=== PATIENT | male | born 1960 | race Caucasian/White ===

== ENCOUNTER → 2022-08-26 | Outpatient (CLI) | payer SELFPAY, OTHER ==
--- NOTE | 2022-08-26 08:25 | CT_ITS ---
STUDY: CT ABDOMEN AND PELVIS WITH CONTRAST REASON FOR EXAM: Male, 62 years old. Multiple hernias and right thigh growth. -- Scan 6 in below groin, right thigh growth RADIATION DOSAGE (If Supplied By Facility): CTDIvol = ( 17.05 ) mGy, DLP = ( 1663.85 ) mGycm TECHNIQUE: Transaxial images were obtained from the dome of the diaphragm to the symphysis pubis with oral contrast. Oral and amp; IV Readi-CAT and amp; 100mL Isovue-300 was administered. Sagittal and coronal images were reconstructed. Individualized dose optimization techniques were used for this CT. COMPARISON: None. FINDINGS: The visualized lung bases are unremarkable. Coronary artery calcification. Normal liver. Normal gallbladder and extrahepatic biliary system. Normal spleen. Normal pancreas. Normal bilateral adrenal glands. Normal right kidney. Normal left kidney. There is a small hiatal hernia. Normal small intestine. There are multiple colonic diverticula consistent with diverticulosis. The appendix is visualized and appears normal. There is scattered atherosclerotic calcification of the abdominal aorta, without a demonstrated aneurysm. Normal inferior vena cava. Normal retroperitoneum. Normal urinary bladder. There is a small umbilical hernia containing fat. Small bilateral inguinal hernias containing fat slightly worse on the right side. There is a 6.6 x 4.6 x 9.4 cm fat-containing mass in the medial anterior aspect of the right thigh suggestive of a lipoma. Normal osseous structures. CT/Abdomen/Pelvis WITH Contrast IMPRESSION: Small bilateral inguinal hernias containing fat slightly worse on the right side. 6.6 cm x 4.6 x 9.4 cm lipoma in the anterior medial aspect of the right thigh. Electronically Signed: Sky Clancy MD at 10:52 EST ,
[2022-08-26 08:55] LABS: CREATININE FINGERSTICK 1.2 mg/dL (0.70-1.30); EGFR FINGERSTICK > 60.0000 mL/min (>60)
== END | disposition home or self-care (01) ==
PROVIDERS: Visit Provider Surgery
DX: K44.9 Diaphragmatic hernia without obstruction or gangrene (principal); D17.23 Benign lipomatous neoplasm of skin and subcutaneous tissue of right leg; K57.30 Diverticulosis of large intestine without perforation or abscess without bleeding; I25.10 Atherosclerotic heart disease of native coronary artery without angina pectoris; K40.20 Bilateral inguinal hernia, without obstruction or gangrene, not specified as recurrent; K46.9 Unspecified abdominal hernia without obstruction or gangrene
CPT/HCPCS: 74177; Q9967

== ENCOUNTER → 2022-09-14 | Outpatient (CLI) | payer SELFPAY, OTHER | END | disposition home or self-care (01) | PROVIDERS: PCP Family Medicine; Referring Provider Nurse Practitioner Acute Care; Visit Provider Nurse Practitioner Acute Care | DX: G47.30 Sleep apnea, unspecified (principal) | CPT/HCPCS: 95806 ==

== ENCOUNTER → 2022-09-15 | Outpatient (CLI) | payer SELFPAY, OTHER ==
--- NOTE | 2022-09-15 12:07 | RAD_ITS ---
INDICATION: CONCERN FOR RA EXAMINATION/TECHNIQUE: X-RAY - RIGHT XR Knee Complete 4 VIEWS COMPARISON: None. FINDINGS: SOFT TISSUES: No soft tissue swelling or gas. No radiopaque foreign body. BONES/JOINTS: No acute fracture or subluxation.. Normal alignment. Preservation of the joint space.. No sclerotic or destructive changes observed. RAD/Knee 4 or More Views IMPRESSION: Negative. Electronically Signed: Levi Thomas DO at 22:44 EST ,
--- NOTE | 2022-09-15 12:18 | RAD_ITS ---
INDICATION: LEFT KNEE SWELLING/ PAIN/CONCERN FOR RA EXAMINATION/TECHNIQUE: X-RAY - LEFT XR Knee Complete 4 VIEWS COMPARISON: None. FINDINGS: SOFT TISSUES: No soft tissue swelling or gas. No radiopaque foreign body. BONES/JOINTS: No acute fracture or subluxation.. Normal alignment. There is a suprapatellar effusion.. No sclerotic or destructive changes observed. RAD/Knee 4 or More Views IMPRESSION: No acute bony injury. There is a mild effusion. Electronically Signed: Levi Thomas DO at 22:48 EST ,
== END | disposition home or self-care (01) ==
LOC: RAD 11:57
PROVIDERS: PCP Family Medicine; Visit Provider Family Medicine
DX: M25.562 Pain in left knee (principal); M25.469 Effusion, unspecified knee
CPT/HCPCS: 73564

== ENCOUNTER 2022-11-16 10:54 | Day surgery (SDC) | payer SELFPAY, OTHER ==
--- NOTE | 2022-11-09 08:37 | EKG12_ITS ---
Test Reason : PRE OP Blood Pressure : / mmHG Vent. Rate : 063 BPM Atrial Rate : 063 BPM P-R Int : 152 ms QRS Dur : 092 ms QT Int : 422 ms P-R-T Axes : 053 073 071 degrees QTc Int : 431 ms Normal sinus rhythm Normal ECG Confirmed by KEIRA CELESTIN, VIRGINIA ([id number]), news copy editor MIRELA CAMACHO ([id number]) on 11/10/2022 9:57:59 AM Referred By: NEVILLE Confirmed By:VIRGINIA CROCKETT MD
[2022-11-16] VITALS (8 sets, daily range): BP systolic 131–174; BP diastolic 80–110; PULSE 66–95; RESP 14–18; TEMP 36.1–37.3; O2SAT 90–99; BMI 29.9
--- NOTE | 2022-11-16 | HERN_PTH ---
PATIENT: RADHA SCHILLING LOC: [facility] [place][id number] AGE/SX: 62/M ROOM: RE11/16/[address]: Dr. Omi Ortega MD : 1960 BED: DIS: 11/16/2022 SPEC #: [id number] RECD: 11/16/22 16:58 STATUS: SABINA BIN #: [id number] DONNA: 11/16/22 00:[address]: Omi Ortega DEPT: SURGICAL PATHOLOGY RECD BY: Russell Plata ENTERED: 11/17/22 09:20 SP TYPE: Hernia OTHR DR: Dr. Obi Lei, DO Tissues: HERNIA Procedures: Surgery Specimen Level III HEADER OPERATION: Robotic assisted umbilical hernia and left inguinal hernia PRE-OP DIAGNOSIS: Bilateral inguinal hernia, umbilical hernia TISSUE SUBMITTED: Left inguinal cord lipoma MICROSCOPIC DIAGNOSIS Left inguinal cord lipoma, excision: Mature adipose tissue consistent with cord lipoma. AM:alec 11/18/2022 MICROSCOPIC DESCRIPTION Slides are reviewed. GROSS DESCRIPTION Received in fixative is one container labeled with the patient's name and designated left inguinal cord lipoma. The specimen consists of multiple irregular fragments of yellow fatty tissue that in aggregate measure 3.0 x 2.0 x 0.2 cm. The specimen is totally submitted in one cassette. / AM:alec 11/17/2022 TC:1 CPT: 95446
[2022-11-16] MEDS: Lactated Ringers 1,000 ML 15 ML IV (11:39)
--- NOTE | 2022-11-16 12:36 | HP.PCM_ITS ---
History and Physical Date of Admission: 11/16/22 Date of Service:? 11/09/22 MR#: [id number] Acct: [id number] Name:RADHA PHILLIPS Rep #: [id number] : 1960 ? ? Provider: Dr. Omi Ortega MD Age/Sex:? 62/M ? ? Location: [facility] Status: Signed Intake Vital Signs ? 11/09/2308:13 Height 5 ft 11 in Weight: 210 lb BMI 29.2 BP 147/90 H Blood Pressure Location Rt brachial Position Sitting Intake Visit Reasons:?Updated H&P Chief Complaint: updated H&P Scan Coordinator Required: No Is patient in pain?: No Allergies No Known Allergies Allergy (Verified 11/09/22 09:12) Medications multivitamin 1 tab PO DAILY 08/18/22 [History Confirmed 11/09/22] naproxen sodium 220 mg capsule (Aleve) 220 mg PO BID PRN Pain 08/18/22 [History Confirmed 11/09/22] prednisone 10 mg tablet 10 mg PO DAILY 11/08/22 [History Confirmed 11/09/22] PFSH Medical History? Back pain CPAP (continuous positive airway pressure) dependence History of irregular heartbeat History of steroid therapy History of stress test Hx of sebaceous cyst Non-smoker Polymyalgia rheumatica Sleep apnea Wears glasses Surgical History? History of cardiac catheterization Family History? Mother Breast cancerSister Thyroid disorder Social History? Smoking Status:? Never smoker HPI HPI HPI: Patient is a 62-year-old male known to me for history of a left inguinal hernia, but has been under work-up for bilateral inguinal hernias, umbilical hernia, and right lower extremity lipoma.? He returns today to update H&P in anticipation of surgery.? He states that he has recently returned from a 3-week trip to [facility].? There he had an enjoyable time with lots of walking, but as a consequence developed an exacerbation of his polymyalgia rheumatica and was prescribed a course of 10 mg prednisone by his physician through the [facility].? He notes that he is due to taper this to 5 mg on 11/15/2022, but states that if that it would be a problem from his surgery he will taper sooner.? Regarding his hernias, he states that they are not bothering him right now, but he is eager to have them addressed so that they do not get to the point of bothering him further.? From a pulmonary update, he states that he is now been using a CPAP machine.? He frankly admits that he is not convinced it is making a difference.? He admits, however, to that he is frequently taking the mask off about longterm through the night rather subconsciously.? He notes that his follow -up with pulmonology on 11/29/2022 is merely that as a follow-up to see how he is tolerating his CPAP machine. Below is recapitulated from patient's consultation visit for ease of review: Patient is a 62-year-old male who presents for left groin discomfort.? He is known to me from recent community event on 07/30/2022 highlighting hernias of all types.? I had the opportunity to perform a brief exam which was concerning for both a left inguinal hernia as well as an umbilical hernia.? Regarding the inguinal complaint, this finding was first noticed by patient 6 months ago.? He denies any significant pain from the area but complains of a sensation.? He also states that he has not felt anything this past 1 week.? He denies any bulging in the area.? Patient is not able to recall how this occurred.? Other symptoms include: No change to bowel movements or sudden onset of nausea or vomiting.? He confirms the umbilical hernia was a completely incidental finding during my exam. Patient has no personal history of smoking.? Has no personal history of recurrent cutaneous infections including staph. Patient also comments on a soft tissue mass of his right thigh which she has been previously told is fatty tissue and could be ignored.? However, he admits no imaging has ever been done of the area and it does continue to grow in size.? He confirms it is asymptomatic for him. Pertinent surgical history includes: Noncontributory Patient reports a prior heart issue which his states occurred some 10 to 12 years ago.? He was routinely donating blood, but was stopped from doing so when he was informed that his heart was skipping a beat.? He reports that he had a very thorough cardiac work-up ensued including a treadmill stress test (which reportedly showed his heart leveled out).? He also reports that there was a very high suspicion that he would require a cardiac stent, but on undergoing a heart catheterization he was told everything was clear and he would not require a stent.? Yet out of the above work-up, he was informed he likely had sleep apnea and underwent a study in [place].? He comments that the results of this study did not leave him with any clear direction as the provider interpreting the study stated that he should probably be on a mask at night.? Mr. Linares did not like the thought of a mask and subsequently lost weight so decided that he did not require this any further.? He has not had any further evaluation, however, his reports that he snores every time he falls asleep and she hears him gasping for air when he takes naps in his chair.? He denies any present chest pain or exertional shortness of breath.? He initially denies any daytime sleepiness, but when called to account by his admits that he takes naps almost daily. Patient has a history of polymyalgia rheumatica diagnosed with the [facility] several years ago.? He reports going on prednisone for 3 years with symptom relief.? He is states now though he is off the steroids (for the past couple years).? He and treats his symptoms now with a Aleve as needed. ROS General General: No weight change, appetite, fatigue, colon cancer, breast cancer or weakness HEENT HEENT: No difficulty swallowing, eye injury, eye surgery, swollen glands or hoarseness Endo Endocrine: No thyroid disease, diabetes mellitus, thyroid cancer, Hair loss, heat intolerance or cold intolerance Skin Skin: No rash or changing moles Breast Breast: No left breast lump, right breast lump, nipple discharge, breast pain, abnormal mammogram, abnormal US or breast enlargement Musc Musculoskeletal: Yes rheumatoid arthritis; No back problems, arthritis, gout or joint pain Cardio Cardiovascular: No murmur, pacemaker, heart disease, atrial fibrillation, high blood pressure, heart attack, heart stent, palpitations, shortness of breat with exertion or chest pain Psych Psychiatric: No depression, anxiety or hearing voices Resp Respiratory: No shortness of breath, Yes sleep apnea, No cough, No COPD, No asthma, No emphysema and No wheezing Gastro Gastrointestinal: No abdominal pain, No nausea or vomiting, No diarrhea, No constipation, No blood in stool, No acid reflux, No hemorrhoids, No ulcers, No gallbladder problem and No black,tarry stools Alexey Hematologic: No blood thinners, No blood disorders, No bleeding, No anemia and No blood clots Neuro Neurologic: No system reviewed and no additional complaints, except as documented, No as per HPI, No abnormal gait, No abnormal hearing, No abnormal movements, No abnormal speech, No behavioral changes, No burning sensations, No confusion, No convulsions, No disequilibrium, No dizziness, No localized weakness, No frequent falls, No headache(s), No lack of coordination, No loss of vision, No memory loss, No numbness, No other visual disturbances, No radicular pain, No restless legs, No sensory deficit, No syncope, No tingling, No tremor(s), No weakness and No other Exam Const General: cooperative, comfortable and no acute distress Resp Effort & Inspection: normal respiratory effort GI Other: reducible 1 cm umbilical hernia.? No scars.? Nondistended, soft and nontender to palpation x4 quadrants Other: Bilateral groin hernias are palpable?appear to be indirect defects.? There is tenderness with exam, but hernias are reducible. Extrem Other: Palpable, superficial, nontender subcutaneous mass in the right anterior thigh compartment Assessment and Plan Assessment and Plan (1) Bilateral inguinal hernia: ?Status:?Chronic ?Comment: Is a 62-year-old male with evidence of bilateral, indirect inguinal hernias who is slated for robot-assisted repair with mesh 11/16/2022.? He states that they have been minimally symptomatic, but he is eager to be underway with repair so that they do not become more of an issue for him.? He confirms that he is prepared to take the necessary time away from activity to allow them to recover appropriately.? We discussed the issues around his diagnosis of sleep apnea and polymyalgia rheumatica.? To the former we discussed needing to stay on his CPAP longer and the absolute necessity of using it the night of his general anesthesia.? Regarding his diagnosis of polymyalgia rheumatica, I have asked him to consider tapering to the 5 mg dose of prednisone sooner than for 11/15/2022.? And we will also have to plan for stress dose steroids the timing of the procedure. ?Plan: ? Robot-assisted bilateral inguinal hernia repair with mesh planned for 11/16/2022 ? Patient to complete MRSA screening later today ? Patient to taper steroids to 5 mg prednisone later this week ? Reach out to pulmonary medicine to assess for any further recommendations from their perspective regarding patient's impending general anesthetic (2) Umbilical hernia: ?Status:?Acute ?Comment: This is an incidental finding in this 62-year-old patient.? As per previous exam, this represents a reducible 1.5 cm defect.? To not compromise her port placement for the bilateral inguinal hernia repair, I have proposed primary closure via separate incision.? Patient states that he would like to proceed as described. ?Plan: ? Primary closure of umbilical hernia concurrent with bilateral inguinal hernia repair as above (3) Mass of right thigh: ?Status:?Acute ?Comment: Long standing finding that has not caused patient any symptoms.? However, he confirms that it is grown considerably in size.? Patient wishes to have this removed, but I have advocated for separate procedure from his hernias as I believe this may impact his recovery.? Patient expresses understanding of this rationale and agrees to defer this procedure to another date.? I did review with him, his CT imaging which shows a clear plane between the lipoma and the underlying musculature/femoral artery. ?Plan: ? Defer lipoma excision from right thigh to later date I have examined the patient and the H&P has been reviewed. There are no clinical changes since date of exam. Patient's blood pressure is a little bit elevated, but he admits that he is just simply anxious until he is underway with surgery. He reports that he otherwise feels well. Procedure expectations and postoperative activity restrictions were reviewed. Patient wishes to know when he will be able to return to work. I have advised him that this should be sooner than his lifting restrictions are due to , but recommended we wait until his follow-up visit. Neither he nor his spouse have any further questions. Therefore we will proceed to the operating room for robot-assisted inguinal hernia repair with mesh as well as open primary umbilical hernia repair.
[2022-11-16] MEDS: Cefazolin 2 GM in 0.9% Normal Saline 100 ML IV (13:00)
--- NOTE | 2022-11-16 15:54 | OP.PCM_ITS ---
Report of Operation Date of Procedure: 11/16/22 Pre-Operative Diagnosis: 1. Left inguinal hernia possible right inguinal hernia 2. Nonincarcerated umbilical hernia (1 cm fascial defect) Post-Operative Diagnosis: 1. Left indirect inguinal hernia and no evidence of right inguinal hernia 2. Nonincarcerated umbilical hernia (1 cm fascial defect) Surgery/Procedure Performed:: 1. Robot-assisted left inguinal hernia repair with mesh 2. Robot-assisted primary umbilical hernia repair Surgeon: Omi Ortega christmas tree farmer: Angelika Fuentes christmas tree farmer: Ida Das Type of Anesthesia: General/Supplemental Anesthesiologist: Fernando Davis Specimen's removed: Left cord lipoma Estimated Blood Loss (mL): 20 Description of Procedure: After appropriate identification in the preoperative holding area the patient was brought to the operating room where he was positioned supine on the operating table. Preoperative antibiotics were completed and the patient was administered a general anesthetic. Patient's abdomen was then prepped and draped in usual sterile fashion. Formal timeout followed to confirm patient and procedure. Procedure was begun with an optical entry facilitated by Veress insufflation at Baker's point. Once pneumoperitoneum reached a set point pres sure of 12 mmHg a right paramedian incision was made and a 8 mm robotic trocar was placed with a careful Optiview technique. Follow-up laparoscopic investigation revealed no inadvertent injury to the viscera below. A second port was placed a hand's breath right of this index port under laparoscopic visualization. Then the Veress needle was withdrawn and a third and final robotic port was placed through this site. Patient was positioned in slight Trendelenburg and I performed a local block of the ilioinguinal nerves using 10 mL local anesthetic under laparoscopic visualization. The robot was docked in standard fashion. In this positioning I could visualize a indirect abdominal wall defect on the left but no visible defect on the right. Robotically, a peritoneal flap was created on the left extending from the medial umbilical ligament to the level of the ASIS (external) and was bluntly dissected to expose the medial parietal compartment and lateral visceral compartments. Medially I could visualize the pubic tubercle and Solis's ligament while laterally I extended the dissection down to the level of the ASIS and the psoas muscle deeply. The indirect hernia sac was identified and from the cord structures deeply with selective use of monopolar energy. A medium size cord lipoma was identified and removed with monopolar energy. Beyond this, I did not visualize either a direct or femoral defect. The peritoneal flap was inspected to ensure that cord was appropriately parietalized and there was no pulling of the cord structures or the viscera deeply over the psoas using the pull test. Then attention was turned to the patient's right side where I again confirmed no evidence of a inguinal hernia. I had observed during his peritoneal exploration, that I had adequate visualization of the patient's umbilical hernia defect and made the decision to repair this robotically (rather than open as patient awake and scented) as well to save him an incision. Using monopolar energy I created a flap of the peritoneum and took down the preperitoneal fat as well as the fat plug within the hernia using gentle traction. Several bleeding vessels were controlled with use of bipolar energy. Ultimately I was able to clearly visualize the umbilical fascial defect and this measured 1 cm in width. Given the small size, and the fact that the patient had been consented for primary repair, I elected to call for a STRATAFIX suture for primary closure. But first a repeat constructed the patient's left side. A Bard 3D max, size large, mid weight mesh was placed into the abdomen along with suture. It was positioned within the preperitoneal pocket so that there was good medial and inferior overlap. It was then tacked to Solis's ligament at the pubic tubercle and laterally in a partial-thickness bite of the abdominal wall using a 3-0 Vicryl suture. The edges of the mesh were tucked in front of the peritoneal flap and the flap was elevated to stimulate closure to be sure that there is no clamshelling. Finding none, I tacked the mesh laterally to the abdominal wall with a second interrupted 3-0 Vicryl stitch. The peritoneal flap was then closed was then closed with a running 3-0 V-Loc suture. I then transitioned to the umbilical site and closed the fascia directly with our STRATAFIX suture and asked my procurement assistant to place some traction on the overlying umbilical skin so that this could be incorporated in the closure and reproduce the concavity that would have been naturally present. After completing this closure in a bidirectional fashion, I used my 3-0 Vicryl suture to tack the peritoneum back over the fascia and thereby protect the viscera from any barbs of the STRATAFIX suture. With the peritoneal defects closed, sutures were systematically removed from the peritoneum and the pneumoperitoneum was evacuated before removing the trocars. The port sites were closed at the skin with running 4-0 Monocryl in a subcuticular fashion. Steri-Strips and OpSite's were used as dressings. Patient's testicles were confirmed within the scrotum. Patient was then awoken from anesthetic and transferred to PACU for ongoing recovery. Grafts/Implants Used: Left 3D max mid anatomic mesh lot number: [id number], reference [id number] Complications None Admit VTE Documentation VTE Mechan Device Prophylaxis: SCD's
--- NOTE | 2022-11-16 15:59 | DCINST_ITS ---
Discharge Instructions Diet Discharge Diet: No restrictions Activity Discharge Activity: May Not Drive (While taking narcotic pain medication) and May Shower May shower in (days): 2 Ice area for (Minutes): 20 Lifting Restrictions: No lifting greater than 15 pounds for the next 4 weeks Dressing / Incision Call your doctor if your incision/area has: Continuous Slow Oozing, Increased Pain/ Swelling, Increased Redness, Foul Smelling Discharge and Swelling at the incision site Call your doctor if you observe: Fever of 101 or Higher Change Dressing in: 2 days (Please leave Steri-Strips intact until they fall off spontaneously or are taken off at your follow-up visit) Cleanse incision/area with: Soap & Water and Keep Dressing Clean & Dry Follow Up Care Please Follow Up With: Omi Ortega MD When: 1 week postop Test Results: Test results from this visit will be discussed in further detail at your follow- up appointment, if applicable. Discharge Plan Admission Primary Reason for Your Visit: Inguinal and umbilical hernia repairs Attending Provider: Omi Ortega Primary Care Provider: Obi Lei Discharge Orders/Prescriptions Prescriptions: New oxycodone 5 mg tablet 5 mg PO Q6H PRN (Reason: pain) 5 Days Qty: 14 0RF No Action naproxen sodium [Aleve] 220 mg capsule 220 mg PO BID PRN (Reason: Pain) multivitamin Tablet 1 tab PO DAILY prednisone 10 mg Tablet 5 mg PO DAILY Label Comments: ON TAPERED DOSE PACK Referrals / Follow Up: Obi Lei DO [Primary Care Provider] - Disposition Disposition (needs filled in before D/C Order can be placed): Home, Self Care
[2022-11-16] MEDS: Bupivacaine 0.25% 30 ML Vial (16:02)
[2022-11-16] MEDS: Sugammadex Sodium 200 MG/2 ML VIAL IV (16:09)
[2022-11-16] MEDS: oxyCODONE 5 MG Tablet PO (17:26)
== END 2022-11-16 17:46 | disposition home or self-care (01) ==
LOC: SDC 10:55 → AC 10:56
PROVIDERS: PCP Family Medicine; Referring Provider Surgery; Visit Provider Surgery
PROC: 0YQ64ZZ Repair Left Inguinal Region, Percutaneous Endoscopic Approach (ICD-10-PCS; CPT 49650; principal; 2022-11-16 12:15)
DX: K40.20 Bilateral inguinal hernia, without obstruction or gangrene, not specified as recurrent (principal); M35.3 Polymyalgia rheumatica; K42.9 Umbilical hernia without obstruction or gangrene; G47.30 Sleep apnea, unspecified; D17.6 Benign lipomatous neoplasm of spermatic cord; Z99.89 Dependence on other enabling machines and devices
CPT/HCPCS: 49650; 49591; 00840; 55520; 87081; 88302; 88304; 93005; J7120; J2405

== ENCOUNTER 2023-01-04 05:58 | Day surgery (SDC) | payer SELFPAY, OTHER ==
[2023-01-04] VITALS (8 sets, daily range): BP systolic 105–150; BP diastolic 69–93; PULSE 49–71; RESP 16; TEMP 36.3–36.7; O2SAT 93–98; BMI 30.7
[2023-01-04] MEDS: Lactated Ringers 1,000 ML 15 ML IV (06:37)
--- NOTE | 2023-01-04 07:26 | HP.PCM_ITS ---
History and Physical Date of Admission: 01/04/23 Date of Service:? 12/15/22 MR#: [id number] Acct: [id number] Name:RADHA PHILLIPS Rep #: [id number] : 1960 ? ? Provider: Dr. Omi Ortega MD Age/Sex:? 62/M ? ? Location: [facility] Status: Signed Intake Intake Visit Reasons:?f/u hernia repair 11/16 Chief Complaint: f/u hernia surgery 11/16 Is patient in pain?: No Allergies No Known Allergies Allergy (Verified 12/15/22 09:01) Medications multivitamin 1 tab PO DAILY 08/18/22 [History Confirmed 12/15/22] prednisone 10 mg tablet 5 mg PO DAILY 11/08/22 [History Confirmed 12/15/22] Subjective Details: Patient is a 62-year-old male who makes his second follow-up visit after a left robot-assisted inguinal hernia repair with mesh as well as a robot-assisted umbilical hernia repair.? His last visit with us was 11/24/2022.? He reports today again with his .? He states that overall he has done well in his ongoing recovery.? He and his report that overall he is remained within his activity restrictions, but does confess that just over 3 weeks out from his surgery he attempted to push a gun safe and did position and felt some pulling in his abdomen.? He denies noting any bulging.? He states that he does have some persistent redness to his incision sites on his abdominal wall and that he used a nail clipper to trim some suture that was sticking out from one of the incisions.? He also, once again, expresses an eagerness to be underway with removal of his right thigh lipoma Below is recapitulated from patient's first postoperative visit for his review: Patient presents following robot-assisted left inguinal and umbilical hernia repairs on 11/16/2022.? Since hospital discharge they have been doing overall well and he states I feel good.? Mr. Linares details what was already communicated to me through nursing, that he experienced significant difficulty with urinary retention.? He states that gradually he was able to overcome this issue with walking and then starting Flomax.? He confirms that his urinary habits are now back to normal.? He states that there has been some soreness and black and blue changes of his scrotum, but that both of these are significantly improving.? They report minimal postoperative pain otherwise.? They do not have wound concerns.? They confirm that they are abiding by lifting restrictions, but Mrs. Linares reports that her is carrying his briefcase to work which may weigh more than the recommended 10 pound allowance. Patient does reiterate that he is eager to have his right thigh lipoma addressed surgically as well Objective Details: Constitutional: No acute distress, upbeat Abdomen: Overall well-healing port site incisions, but there is some mild erythema about the right upper quadrant port site with some scabbing in this loc ation which is suggestive of possible reaction to the underlying suture.? Patient's abdomen is otherwise mildly distended and nontender with palpation.? There is no bulging in his groins. Extremity: Patient's right lower extremity is evaluated and it does appear that patient's neurovascular bundle courses directly deep to the area of his lipoma.? This area has a longitudinal dimension of approximately 16 cm and is nontender with palpation. Coding Level of Care Code Attention Rn Lpn Lvn Diagnoses S/P left inguinal hernia repair? Z98.890; Z87.19 Status post umbilical hernia repair, follow-up exam? Z09 Mass of right thigh? R22.41 Comment This visit representing postop for patient's hernia, but also preop planning for lipoma PFSH Medical History? Back pain CPAP (continuous positive airway pressure) dependence History of irregular heartbeat History of steroid therapy History of stress test Hx of sebaceous cyst Non-smoker Polymyalgia rheumatica Sleep apnea Wears glasses Surgical History? History of cardiac catheterization S/P hernia repair Family History? Mother Breast cancerSister Thyroid disorder Social History? Smoking Status:? Never smoker Assessment and Plan (No Qualifiers) Assessment and Plan (1) S/P left inguinal hernia repair: ?Status:?Acute ?Comment: This is a 62-year-old male who reports for his second postoperative visit following robot-assisted left inguinal hernia repair with mesh as well as primary umbilical hernia repair via robot approach.? He continues to do well in his recovery and remains overall well-healing.? I do have some concern for possible developing stitch abscess in the right uppermost port site and have recommended some local wound care there with regular application of triple antibiotic ointment and he is advised to come see me if the suture material is continuing to spit.? Overall Mr. Linares has continued to abide by lifting restrictions, but confesses to pushing a heavy gun safe 3 weeks out from his surgery.? Patient denies any further issues with his scrotum.? I have asked him to continue to abide by his activity restrictions through the full 5 weeks postoperatively and then plan for a gradual return to activity with incremental increases in his intensity/weight lifted ?Plan: ? Continue activity restrictions for full 5 weeks postop of no lifting greater than 10 pounds, then recommend gradual return to activity ? Continue triple antibiotic ointment to incisions (2) Status post umbilical hernia repair, follow-up exam: ?Status:?Acute ?Comment: Well-healing, no issues.? No incision to examine given that this was repaired via preperitoneal approach robotically.? Activity restrictions as above apply. (3) Mass of right thigh: ?Status:?Acute ?Comment: Long standing finding that has not caused patient any symptoms.? However, patient confirms that it is grown considerably in size and therefore wishes to have this removed.? In reviewing patient's upcoming plans, an operation sometime in the next 3 weeks truly does sound the most ideal for allowing for at least 4 weeks of recovery postoperatively.? I have informed patient that I would make liberal use of a drain at the time of his procedure given that I am expecting a substantial void will be left following extirpation of this lipomatous mass.? Given the appearance of a well encapsulated mass on CT imaging, I believe this should be achievable through MAC sedation, but will ultimately defer to anesthesia as well. ?Plan: Excision of right thigh lipoma under anesthesia with planned outpatient disposition.? Patient advised that he should begin his Flomax at least 1 week prior to the OR given his history of urinary retention post hernia repair I have examined the patient and the H&P has been reviewed. There are no clinical changes since date of exam. Patient denies any health changes since her last visit. Neither he nor his have any further questions. Unfortunately he only began his Flomax preemptively yesterday, so we will watch him closely for urinary retention postop. Proceed to the operating room for excision of right thigh lipoma as planned above.
--- NOTE | 2023-01-04 07:30 | LIP_PTH ---
PATIENT: RADHA SCHILLING [place] [facility] [place][id number] AGE/SX: 62/M ROOM: RE01/04/[address]: Dr. Omi Ortega MD : 1960 BED: DIS: 01/04/2023 SPEC #: [id number] RECD: 01/04/23 09:23 STATUS: SABINA RECourtney #: [id number] DONNA: 01/04/23 07:[address]: Omi Ortega DEPT: SURGICAL PATHOLOGY RECD BY: Swati Sanders ENTERED: 01/04/23 10:21 SP TYPE: LIPOMA OTHR DR: Dr. Obi Lei, DO Tissues: A - Soft tissues, NOS B - Soft tissues, NOS Procedures: Surgery Specimen Level III HEADER OPERATION: Removal thigh lipoma PRE-OP DIAGNOSIS: Mass of right thigh TISSUE SUBMITTED: A ? Right thigh lipoma, B ? Right anterior thigh fat MICROSCOPIC DIAGNOSIS A. Right thigh lipoma, excision: Mature adipose tissue consistent with lipoma. B. Right anterior thigh fat, excision: A piece of mature adipose tissue, no pathologic diagnosis. BRYAN:alec 01/05/2023 MICROSCOPIC DESCRIPTION Slides are reviewed. GROSS DESCRIPTION A - Received in fixative is one container labeled with the patient's name and designated right medial thigh lipoma. The specimen consists of an irregular piece of adipose tissue measuring 17.0 x 9.0 x 5.0 cm. The external surface is inked. Sections reveal yellow adipose cut surfaces without areas of hemorrhage, necrosis or cystic degeneration. Machine Stoppage Frequency Checker sections are submitted in four cassettes. B - Received in fixative is one container labeled with the patient's name and designated right anterior thigh fat. The specimen consists of a piece of yellow adipose tissue measuring 9.5 x 5.5 x 1.5 cm. Sections reveal yellow adipose cut surfaces without any obvious mass lesion. Machine Stoppage Frequency Checker sections are submitted in two cassettes. / BRYAN:alec 01/04/2023 TC:1 CPT: 50433 x2
[2023-01-04] MEDS: Cefazolin 2 GM in 0.9% Normal Saline 100 ML IV (07:33)
[2023-01-04] MEDS: Lidocaine 1%/Epi 1:200 (30ml) 30 ML AMPUL (07:55)
[2023-01-04] MEDS: Bupivacaine 0.25% 30 ML Vial (07:55)
--- NOTE | 2023-01-04 09:39 | OP.PCM_ITS ---
Report of Operation Date of Procedure: 01/04/23 Pre-Operative Diagnosis: Right medial thigh lipoma Post-Operative Diagnosis: Same Surgery/Procedure Performed:: Excision of right thigh lipoma Description of Surgical Findings:: Large, encapsulated just superficial to the sartorius muscle in the right thigh Surgeon: Omi Ortega regional facilities manager: Angelika Fuentes Type of Anesthesia: General/Supplemental Anesthesiologist: Fernando Davis Specimen's removed: 1. Right medial thigh lipoma 2. Right anterior thigh fat Drains: 10 Tanz[place] flat Estimated Blood Loss (mL): 20 Description of Procedure: Patient was seen preprocedurally and his right thigh was marked for the maximal extent of lipoma as well as the course of the saphenous vein. He was then administered a MAC anesthetic, but proved to not be able to oxygenate optimally at the deeper levels of sedation so anesthesia elected to place a laryngeal mask airway and reduce the general anesthetic. Preoperative antibiotics were administered. The patient's right medial thigh was clipped of hair and then prepped and draped in usual sterile fashion. A formal timeout was conducted to confirm patient and procedure. Local block was created with a Marcaine/lidocaine mixture and an incision was made obliquely over the longitudinal axis of the patient's lipoma. This brought me down to a level of subcutaneous tissue which appeared grossly normal, but was bulbous in shape. Therefore I interpreted to represent the top layer of patient's lipoma and began a meticulous dissection between it and the overlying skin?taking care to avoid buttonholing the overlying skin. This blunt dissection proceeded in all directions and medially great care was taken to avoid injury to a cutaneous nerve. I was eventually able to get a medial release to the fatty layer and deep to this encountered patient's well encapsulated fatty tumor. Simple blunt dissection was used at the distal tip of the growth to deliver it from its muscular bed deeply. The lipoma remained connected at its superior aspect by a vessel that was initially cauterized, but this resulted in bleeding so a 3-0 Vicryl stick tie was used to secure this vessel. The lipoma was then amputated free and passed off the operative field for pathologic processing. Since I had performed an extensive medial dissection of patient's more superficial subcutaneous layer, I feared that a medial margin would not survive due to being devascularized so I used electrocautery to remove an approximately 4 cm strip of this fatty tissue. As I did so I did encounter some bleeding from within this layer?confirming that the remaining portion was vascularized. In an effort to return the normal contours of patient's thigh I used a 2-0 Vicryl to approximate this fatty layer to the remaining subcutaneous layer more medially, but just prior to doing so I inserted a 10 Tanzanian flat drain into the wound bed and brought this out through a stab incision separate from our surgical site along the superior aspect and secured this at the skin with a 3-0 nylon suture. To try to promote wound inosculation between the recently freed superficial subcutaneous layer and the overlying dermis, I performed a number of tacking sutures between these 2 layers using interrupted superficial bites with a 3-0 Vicryl. Lastly the main incision was closed with interrupted 3-0 Vicryl's in a deep dermal location followed by a running subcuticular stitch. Steri-Strips and bandages were applied as dressings. Patient was awoken from his general anesthetic and taken to PACU for ongoing recovery. Grafts/Implants Used: None Complications None Admit VTE Documentation VTE Mechan Device Prophylaxis: SCD's Procedures Integumentary 114x: 00624 Exc tr-ext b9+argenis >4.0 cm
--- NOTE | 2023-01-04 09:46 | DCINST_ITS ---
Discharge Instructions Diet Discharge Diet: No restrictions Activity Discharge Activity: May Shower (In 2 days) May shower in (days): 2 Ice area for (Minutes): 10 Lifting Restrictions: 10 pounds for 2 weeks Dressing / Incision Call your doctor if your incision/area has: Continuous Slow Oozing, Increased Pain/ Swelling and Swelling at the incision site Remove Dressing in: 2 days Cleanse incision/area with: Soap & Water Follow Up Care Please Follow Up With: Omi Ortega MD When: 1 week postop Test Results: Test results from this visit will be discussed in further detail at your follow- up appointment, if applicable. Discharge Plan Admission Primary Reason for Your Visit: Excision of right thigh lipoma Attending Provider: Omi Ortega Primary Care Provider: Obi Lei Instructions Additional Instructions / Restrictions: Please record daily drain outputs and bring log with you to your appointment Discharge Orders/Prescriptions Prescriptions: No Action multivitamin Tablet 1 tab PO DAILY naproxen sodium [Aleve] 220 mg Capsule 220 mg PO Q12H PRN (Reason: Pain) Referrals / Follow Up: Obi Lei DO [Primary Care Provider] - Disposition Disposition (needs filled in before D/C Order can be placed): Home, Self Care
== END 2023-01-04 11:47 | disposition home or self-care (01) ==
LOC: SDC 05:59 → AC 06:00
PROVIDERS: PCP Family Medicine; Referring Provider Surgery; Visit Provider Surgery
PROC: (CPT 27339; principal; 2023-01-04 07:15)
DX: D17.23 Benign lipomatous neoplasm of skin and subcutaneous tissue of right leg (principal); G47.30 Sleep apnea, unspecified
CPT/HCPCS: 27339; 01250; 88304; J7120; J2405

== ENCOUNTER → 2023-04-21 | Outpatient (CLI) | payer OTHER, SELFPAY | END | disposition home or self-care (01) | LOC: SL 13:41 | PROVIDERS: PCP Family Medicine; Referring Provider Internal Medicine Critical Care Medicine; Visit Provider Internal Medicine Critical Care Medicine | DX: G47.30 Sleep apnea, unspecified (principal) | CPT/HCPCS: 98960; G0463 ==